=== PATIENT | female | born 1990 | race Caucasian/White ===

== ENCOUNTER 2019-04-19 17:00 | Inpatient (IN) | payer OTHER ==
--- NOTE | 2019-04-19 17:33 | HP ---
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: Alzheimer's, CVA, Dementia, Migraine, Multiple Sclerosis, Peripheral Neuropathy, Parkinson's, Seizure, Syncope, TIA, Vertigo, Other (migraines) Cardiovascular: No: AFIB, Aneurysm, Aortic Insufficiency, Aortic Stenosis, CAD, CHF, Deep Vein Thrombosis, HTN, Hyperlipdemia, ID, Mitral Insufficiency, Mitral Stenosis, Murmur, Pulmonary Hypertension, Other Pulmonary: No: Asthma, Bronchitis, Cancer, COPD, O2 Dependent, Pneumonia, Previously Intubated, Pulmonary Embolus, Pulmonary Fibrosis, Sleep Apnea, Other Gastrointestinal: No: Ascites, Cancer, Constipation, Crohn's Disease, Diverticulitis, Diverticulosis, Esophageal Varices, Gastritis, GERD, GI Bleed, Hemorrhoids, Hiatal Hernia, Inflamatory Bowel Disease, Irritable Bowel Disease, Pancreatitis, Peptic Ulcer Disease, Ulcerative Colitis, Other Hepatobiliary: No: Cirrhosis, Cholelithiasis, Cholecystitis, Choledocholithiasis , Hepatitis A, Hepatitis B, Hepatitis C, Other Renal/: No: Renal Failure, Renal Inusuff, BPH, Cancer, Hematuria, Hemodialysis , Neurogenic Bladder, Renal Calculi, UTI, Other Reproductive: No: Ectopic , Endometriosis, Fibroids, PID, Polycystic Ovary Syndrome, Postmenopausal, Other Heme/Onc: No: Anemia, B12 Deficiency, Bleeding Disorder, Cancer, Current Chemotherapy, Current Radiation Therapy, Hemochromatosis, Hypercoaguable State, Myeloproliferative Synd, Sickle Cell Disease, Sickle Cell Trait, Thrombocytopenia, Other Infectious Disease: No: AIDS, C-Diff, Herpes Zoster, HIV, MRSA, STD's, Tuberculosis, VREF, Other Psych: No: Addictions, Anxiety, Bipolar, Depression, Panic, Psychosis, Schizophrenia, Other Musculoskeletal: No: Bursitis, Chronic low back pain, Hemiparesis, Hemiplegia, Osteoarthritis, Paraplegia, Other Rheumatology: No: Fibromyalgia, Gout, Lupus, Rheumatoid Arthritis, Sarcoidosis, Vasculitis, Other ENT: No: Allergic Rhinitis, Sinusitis, Other Endocrine: No: Rockwall's Disease, Kris's Disease, Diabetes Insipidus, Diabetes Mellitus, Hyperparathyroidism, Hyperthyroidism, Hypothyroidism, Osteopenia, SIADH, Other Dermatology: No: Basal Cell, Cellulitis, Eczema, Melanoma, Psoriasis, Squamous Cell, Other - Past Surgical History Past Surgical History: No: None, AAA Repair, AICD, Amputation, Appendectomy, Arthrosocopy, AV Fistula/Graft, Bariatric Surgery, Breast Biopsy, Bypass, CABG, Carotid Endarterectomy, Cataract Removal, Cholecystectomy, Colectomy, Colonoscopy, Colostomy, Craniotomy, , Cystectomy, Hernia Repair, Hysterectomy, Ileal Conduit, Ileosotomy, Joint Replacement, Kidney Transplant, Laminectomy, Liver Transplant, Mastectomy, Nephrectomy, Oopherectomy, Orchiectomy, Permanent Pacemaker, Prostatectomy, Splenectomy, Stent, Thoracotomy , TURP, Tonsillectomy, Tubal Ligation, Upper Endoscopy, Valve Replacement, Vasectomy, Vein Stripping/Ligation Hx Myomectomy: No Hx Transabdominal Cerclage: No - Smoking History Have you smoked in the past 12 months: No Family Medical History Other Family History: Mother with diagnosed HTN Review of Systems Findings/Remarks: Feeling wet since 7 AM - Review of Systems Constitutional: reports: No Symptoms Eyes: reports: No Symptoms HENT: reports: No Symptoms Neck: reports: No Symptoms Cardiovascular: reports: No Symptoms Respiratory: reports: No Symptoms Gastrointestinal: reports: No Symptoms Genitourinary: reports: No Symptoms Breasts: reports: No Symptoms Reported Musculoskeletal: reports: No Symptoms Integumentary: reports: No Symptoms Neurological: reports: No Symptoms Endocrine: reports: No Symptoms Hematology/Lymphatic: reports: No Symptoms Psychiatric: reports: No Symptoms Physical Exam - Maternity Vital Signs: as reported by nursing Constitutional: Yes: No Distress Eyes: Yes: Conjunctiva Clear HENT: Yes: Atraumatic, Normocephalic Neck: Yes: Supple Cardiovascular: Yes: Regular Rate and Rhythm Breast(s): Yes: Other (deferred) - Abdominal Exam/OB Number of Fetuses: Single Presentation: Vertex (bedside sono, HERBERT 4.7cm, OA) Contractions: Yes Regularity: Irregular Intensity: Mild Monitor Mode: External Heart Rate (range): 135 Category: I Accelerations: Uniform Decelerations: None - Vaginal Exam/OB Vaginal Bleediing: No Speculum Exam: Yes (scant clear pooling) Dilatation (cm): 2 Effacement (%): 40 Amniotic Membrane Status: Ruptured Nitrazine Test: Positive Presentation: Vertex/Position Station: -3 - Physical Exam Musculoskeletal: Yes: WNL Extremities: Yes: WNL Edema: Yes Edema: LLE: Trace, RLE: Trace Integumentary: Yes: WNL ...Motor Strength: WNL Psychiatric: Yes: Alert, Oriented - Labs Lab Results: pending Imaging - Results Ultrasound: Report Reviewed Assessment/Plan 28 y/o @ 39.3wks, PROm since 7am, reassuring and maternal statuses. PROM discussed with patient and indication for augmentation of labor. IOL explained along with her risks. All questions answered and informed consnet obtained. -Admit -Start pitocin
[2019-04-19 17:40] VITALS: BMI 24.0
[2019-04-19] MEDS ORDERED: OXYTOCIN 30 UNITS in 0.9% NS 30 UNIT/500 ML INFUS.BAG IVPB SCH (17:45)
[2019-04-19] MEDS ORDERED: ELECTROLYTE-148 SOLN 1,000 ML IV SCH (17:45)
[2019-04-19] MEDS ORDERED: OXYTOCIN 30 UNITS in 0.9% NS 30 UNIT/500 ML INFUS.BAG IVPB ONE (17:56)
[2019-04-19] MEDS ORDERED: ACETAMINOPHEN 325 MG TABLET (FP) PO PRN (20:20)
[2019-04-19] MEDS ORDERED: ACETAMINOPHEN 325 MG TABLET (FP) ONE (20:22)
[2019-04-19 21:34] LABS: BASO % 0.3 % (0-2.0); HEMATOCRIT 36.8 % (32.4-45.2); HEMOGLOBIN 12.3 GM/dL (10.7-15.3); LYMPH % 22.4 % (8-40); MCH 29.4 pg (25.7-33.7); MCHC 33.3 g/dl (32.0-36.0); MEAN CELL VOLUME 88.2 fl (80-96); MEAN PLT VOLUME 8.8 fl (7.5-11.1); MONO % 5.4 % (3.8-10.2); NEUT % 70.9 % (42.8-82.8); PLATELET COUNT 192 K/MM3 (134-434); RBC 4.18 M/mm3 (3.60-5.2); RDW 14.1 % (11.6-15.6); WHITE BLOOD COUNT 8.8 K/mm3 (4.0-10.0)
[2019-04-19 21:51] LABS: INR 0.91 (0.83-1.09); PROTHROMBIN TIME (PATIENT) 10.7 SEC (9.7-13.0)
[2019-04-19 21:54] LABS: ACTIVATED PTT 27.3 SECONDS (25.2-36.5)
[2019-04-19 21:58] LABS: BLOOD UREA NITROGEN 9.3 mg/dL (7-18); CALCIUM 8.7 mg/dL (8.5-10.1); CREATININE 0.6 mg/dL (0.55-1.3); POTASSIUM 3.7 mmol/L (3.5-5.1)
[2019-04-19] MEDS ORDERED: LIDOCAINE HCL 1% PRESERVATIVE FREE - 30ML VIAL ONE (22:07)
[2019-04-19] MEDS ORDERED: OXYTOCIN 20 UNITS in 0.9% NS 20 UNIT/1,000 ML INFUS.BAG IV ONE (22:08)
--- NOTE | 2019-04-19 22:58 | PN ---
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 Shoulders delivered with maternal expulsive efforts, followed by the rest of the body. Umbilical cord clamped after delay and samples for gases and blood obtained. Placenta delivered spontaneously and intact. Exam revealed small hemostatic left labial minora laceration re-approximated with 3 interrupted 4.0 polysorb sutures. Fundus is firm and excellent hemostasis noted. Sponge/ instrument count correct x 2 and confirmed by nurse.
[2019-04-19] MEDS ORDERED: OXYTOCIN 20 UNITS in 0.9% NS 20 UNIT/1,000 ML INFUS.BAG IV SCH (23:00)
--- NOTE | 2019-04-19 23:13 | CONSULT ---
Consult - text type - Consultation Consultation Note: ICU and ER called, patient is still awaiting transfer to ICU and magnesium administration.
[2019-04-20] MEDS: ACETAMINOPHEN 325 MG TABLET (FP) PO PRN ×3 (00:35→23:15)
[2019-04-20] MEDS: IBUPROFEN 600 MG TABLET (FP) PO PRN ×3 (00:36→23:14)
[2019-04-20 08:32] LABS: HEMATOCRIT 35.3 % (32.4-45.2); HEMOGLOBIN 11.8 GM/dL (10.7-15.3); MEAN CELL VOLUME 88.2 fl (80-96); WHITE BLOOD COUNT 10.7 K/mm3 (4.0-10.0)
[2019-04-20 08:33] LABS: BASO % 0.3 % (0-2.0); EOS % 0.6 % (0-4.5); LYMPH % 17.3 % (8-40); MCH 29.6 pg (25.7-33.7); MCHC 33.5 g/dl (32.0-36.0); NEUT % 77.8 % (42.8-82.8); PLATELET COUNT 180 K/MM3 (134-434); RDW 13.7 % (11.6-15.6)
[2019-04-20] MEDS ORDERED: DIPHTH,PERTUSS(ACELL),TET 0.5 ML DISP.SYRIN IM ONE (10:00)
--- NOTE | 2019-04-21 08:38 | PN ---
Post Progress Note - Subjective Subjective: no complains Post Day: 2 Type of Delivery: Vital Signs: Vital Signs Temperature 99 F 04/20/19 21:00 Pulse Rate 79 04/20/19 21:00 Respiratory Rate 18 04/20/19 21:00 Blood Pressure 118/72 04/20/19 21:00 O2 Sat by Pulse Oximetry (%) 100 04/19/19 23:45 Breast Exam: Yes: Soft, Other (both Bf & bottle feeding ). No: Engorged Uterus: Yes: Fundus Firm, Fundus below umbilicus, Non-tender Lochia: Yes: Rubra Lochia, amount: Small Extremities: Yes: Calves non-tender Perineum: Yes: Intact Activity: Ambulating - Labs Labs: CBC WBC 10.7 K/mm3 (4.0-10.0) H 04/20/19 07:03 RBC 4.00 M/mm3 (3.60-5.2) 04/20/19 07:03 Hgb 11.8 GM/dL (10.7-15.3) 04/20/19 07:03 Hct 35.3 % (32.4-45.2) 04/20/19 07:03 MCV 88.2 fl (80-96) 04/20/19 07:03 MCH 29.6 pg (25.7-33.7) 04/20/19 07:03 MCHC 33.5 g/dl (32.0-36.0) 04/20/19 07:03 RDW 13.7 % (11.6-15.6) 04/20/19 07:03 Plt Count 180 K/MM3 (134-434) 04/20/19 07:03 MPV 9.0 fl (7.5-11.1) 04/20/19 07:03 Absolute Neuts (auto) 8.4 K/mm3 (1.5-8.0) H 04/20/19 07:03 Neutrophils % 77.8 % (42.8-82.8) 04/20/19 07:03 Lymphocytes % 17.3 % (8-40) D 04/20/19 07:03 Monocytes % 4.0 % (3.8-10.2) 04/20/19 07:03 Eosinophils % 0.6 % (0-4.5) 04/20/19 07:03 Basophils % 0.3 % (0-2.0) 04/20/19 07:03 Nucleated RBC % 0 % (0-0) 04/20/19 07:03 Problem List - Problems (1) Encounter for care and examination after delivery Code(s): Z39.2 - ENCOUNTER FOR ROUTINE FOLLOW-UP Assessment/Plan pp day 32 stable plan discharge today
[2019-04-21 09:47] VITALS: BP 117/78; PULSE 63; TEMP 98.3
--- NOTE | 2019-04-21 09:54 | PN ---
Post Progress Note - Subjective Subjective: Patient is doing well. precautions discussed and all questions answered. Post Day: 2 Type of Delivery: Vital Signs: Vital Signs Temperature 98.3 F 04/21/19 07:50 Pulse Rate 63 04/21/19 07:50 Respiratory Rate 18 04/21/19 07:50 Blood Pressure 117/78 04/21/19 07:50 O2 Sat by Pulse Oximetry (%) 100 04/19/19 23:45 Breast Exam: Yes: Other (deferred) Uterus: Yes: Fundus Firm Abdomen/GI: Yes: Abdomen soft Lochia, amount: Moderate Extremities: Yes: Calves non-tender Perineum: Yes: Laceration (intact and suryres in place) - Labs Labs: CBC WBC 10.7 K/mm3 (4.0-10.0) H 04/20/19 07:03 RBC 4.00 M/mm3 (3.60-5.2) 04/20/19 07:03 Hgb 11.8 GM/dL (10.7-15.3) 04/20/19 07:03 Hct 35.3 % (32.4-45.2) 04/20/19 07:03 MCV 88.2 fl (80-96) 04/20/19 07:03 MCH 29.6 pg (25.7-33.7) 04/20/19 07:03 MCHC 33.5 g/dl (32.0-36.0) 04/20/19 07:03 RDW 13.7 % (11.6-15.6) 04/20/19 07:03 Plt Count 180 K/MM3 (134-434) 04/20/19 07:03 MPV 9.0 fl (7.5-11.1) 04/20/19 07:03 Absolute Neuts (auto) 8.4 K/mm3 (1.5-8.0) H 04/20/19 07:03 Neutrophils % 77.8 % (42.8-82.8) 04/20/19 07:03 Lymphocytes % 17.3 % (8-40) D 04/20/19 07:03 Monocytes % 4.0 % (3.8-10.2) 04/20/19 07:03 Eosinophils % 0.6 % (0-4.5) 04/20/19 07:03 Basophils % 0.3 % (0-2.0) 04/20/19 07:03 Nucleated RBC % 0 % (0-0) 04/20/19 07:03 Assessment/Plan PP# 2 in stable condition with baby at bedside -D/C home -F/U for PP visit and PRN
== END 2019-04-21 13:15 | disposition home or self-care (01) | DRG 560 ==
LOC: JLDR 17:00 → J3W 04-20 00:16
PROVIDERS: ADMIT Student in an Organized Health Care Education/Training Program; ATTEND Student in an Organized Health Care Education/Training Program
PROC: 10E0XZZ Delivery of Products of Conception, External Approach (ICD-10-PCS; principal; 2019-04-19)
PROC: 0W8NXZZ Division of Female Perineum, External Approach (ICD-10-PCS; 2019-04-19)
PROC: 0UQMXZZ Repair Vulva, External Approach (ICD-10-PCS; 2019-04-19)
DX: O71.82 Other specified trauma to perineum and vulva (principal); O42.92 Full-term premature rupture of membranes, unspecified as to length of time between rupture and onset of labor; Z3A.39 39 weeks gestation of pregnancy; Z37.0 Single live birth
CPT/HCPCS: 36415; 36600; 59409; 80048; 82803; 85025; 85610; 85730; 86593; 86850; 86870; 86900; 86901; 86902; 90715

== ENCOUNTER 2021-01-08 16:47 | Emergency (ER) | payer OTHER ==
[2021-01-08 17:09] VITALS: BP 135/89; PULSE 94; TEMP 99.3; BMI 21.1
[2021-01-08 18:20] LABS: BASO % 0.6 % (0-2.0); EOS % 2.1 % (0-4.5); HEMATOCRIT 39.3 % (32.4-45.2); HEMOGLOBIN 13.1 GM/dL (10.7-15.3); LYMPH % 30.9 % (8-40); MCH 28.8 pg (25.7-33.7); MCHC 33.4 g/dl (32.0-36.0); MEAN CELL VOLUME 86.2 fl (80-96); MEAN PLT VOLUME 7.9 fl (7.5-11.1); MONO % 4.2 % (3.8-10.2); NEUT % 62.2 % (42.8-82.8); PLATELET COUNT 293 10^3/uL (134-434); RBC 4.56 M/mm3 (3.60-5.2); RDW 12.8 % (11.6-15.6); WHITE BLOOD COUNT 8.7 K/mm3 (4.0-10.0)
[2021-01-08 18:27] LABS: INR 1.01 (0.83-1.09); PROTHROMBIN TIME (PATIENT) 12.2 SEC (9.7-13.0)
[2021-01-08 18:28] LABS: EPI CELLS 16 /uL (0-25.1); HYALINE CASTS 0 /uL (0-3.1); URINE APPEARANCE CLEAR; URINE BACTERIA 126 /uL (0-1359); URINE BILIRUBIN NEGATIVE (NEGATIVE); URINE COLOR YELLOW; URINE GLUCOSE (UA) NEGATIVE (NEGATIVE); URINE KETONE NEGATIVE (NEGATIVE); URINE LEUK ESTERASE 1+ (NEGATIVE); URINE NITRITE NEGATIVE (NEGATIVE); URINE PROTEIN NEGATIVE (NEGATIVE); URINE RBC 322 /uL (0-23.9); URINE WBC 35 /uL (0-25.8)
[2021-01-08 18:29] LABS: ACTIVATED PTT 28.7 SECONDS (25.2-36.5); HCG,QUALITATIVE URINE Negative
[2021-01-08 18:40] LABS: ALBUMIN 4.3 g/dl (3.4-5.0); BLOOD UREA NITROGEN 12.6 mg/dL (7-18); CALCIUM 9.6 mg/dL (8.5-10.1)
[2021-01-08 18:45] LABS: BILIRUBIN,TOTAL 0.2 mg/dL (0.2-1); TOT PROT 7.5 g/dl (6.4-8.2)
== END 2021-01-08 19:15 | disposition home or self-care (01) ==
LOC: JER 16:47
DX: N93.8 Other specified abnormal uterine and vaginal bleeding (principal)
CPT/HCPCS: 36415; 80053; 81003; 84703; 85025; 85610; 85730; 99283-25

== ENCOUNTER 2022-04-12 09:17 | Emergency (ER) | payer OTHER ==
[2022-04-12 09:38] VITALS: BP 142/92; PULSE 94; RESP 17; TEMP 97.5; BMI 21.1
[2022-04-12] MEDS ORDERED: SODIUM CHLORIDE 0.9% 500 ML INFUS.BAG IV ONE (09:54)
[2022-04-12 10:30] LABS: BASO % 0.7 % (0-2.0); EOS % 2.5 % (0-4.5); HEMATOCRIT 41.5 % (32.4-45.2); HEMOGLOBIN 13.5 GM/dL (10.7-15.3); LYMPH % 30.5 % (8-40); MCH 28.4 pg (25.7-33.7); MCHC 32.4 g/dl (32.0-36.0); MEAN CELL VOLUME 87.7 fl (80-96); MONO % 4.1 % (3.8-10.2); NEUT % 62.2 % (42.8-82.8); PLATELET COUNT 278 10^3/uL (134-434); RBC 4.74 M/mm3 (3.60-5.2); RDW 12.9 % (11.6-15.6); WHITE BLOOD COUNT 6.1 K/mm3 (4.0-10.0)
[2022-04-12 10:51] LABS: CHLORIDE 109 mmol/L (98-107); SODIUM 142 mmol/L (136-145)
[2022-04-12 10:53] LABS: ALBUMIN 3.9 g/dl (3.4-5.0); ANION GAP 5 MMOL/L (8-16); CALCIUM 9.4 mg/dL (8.5-10.1); CO2 28 mmol/L (21-32); GLUCOSE,RANDOM 95 mg/dL (74-106)
[2022-04-12 10:54] LABS: BLOOD UREA NITROGEN 7.3 mg/dL (7-18); MAGNESIUM 2.2 mg/dL (1.8-2.4)
[2022-04-12 10:56] LABS: CREATININE 0.8 mg/dL (0.55-1.3); SGPT/ALT 18 U/L (13-61)
[2022-04-12 10:57] LABS: SGOT/AST 16 U/L (15-37)
[2022-04-12 10:58] LABS: BILIRUBIN,TOTAL 0.3 mg/dL (0.2-1)
[2022-04-12 10:59] LABS: ALK PHOS 55 U/L (45-117)
== END 2022-04-12 11:57 | disposition home or self-care (01) ==
LOC: JER 09:17
DX: R00.2 Palpitations (principal)
CPT/HCPCS: 36415; 71046-TC-FY; 80053; 83735; 84443; 84484; 85025; 93005; 93010; 99285-25

== ENCOUNTER 2023-09-29 09:11 | Emergency (ER) | payer OTHER ==
[2023-09-29 09:44] VITALS: BP 113/84; PULSE 87; RESP 18; TEMP 100.5; BMI 20.5
[2023-09-29] MEDS ORDERED: METOCLOPRAMIDE HCL INJECTION 10 MG/2 ML VIAL ONE (10:13)
[2023-09-29] MEDS ORDERED: ACETAMINOPHEN INJECTION 100 ML IVPB ONE (10:31)
[2023-09-29] MEDS: SODIUM CHLORIDE 0.9% 500 ML INFUS.BAG IV ONE (10:36)
[2023-09-29] MEDS: METOCLOPRAMIDE HCL INJECTION 10 MG/2 ML VIAL IVPUSH ONE (10:36)
[2023-09-29] MEDS: ACETAMINOPHEN 1000 MG/100 ML BAG IVPB ONE (10:36)
[2023-09-29 10:44] LABS: BASO % 0.6 % (0-2.0); EOS % 0.3 % (0-4.5); HEMATOCRIT 37.8 % (32.4-45.2); HEMOGLOBIN 12.8 GM/dL (10.7-15.3); LYMPH % 23.9 % (8-40); MCH 29.8 pg (25.7-33.7); MCHC 33.8 g/dl (32.0-36.0); MEAN PLT VOLUME 8.9 fl (7.5-11.1); MONO % 9.5 % (3.8-10.2); NEUT % 65.7 % (42.8-82.8); PLATELET COUNT 233 10^3/uL (134-434); RDW 13.5 % (11.6-15.6)
[2023-09-29 11:09] LABS: POTASSIUM 4.9 mmol/L (3.5-5.1)
[2023-09-29 11:11] LABS: ALBUMIN 3.5 g/dl (3.4-5.0); CALCIUM 9.1 mg/dL (8.5-10.1)
[2023-09-29 11:12] LABS: BLOOD UREA NITROGEN 8.8 mg/dL (7-18)
[2023-09-29 11:15] LABS: CREATININE 0.6 mg/dL (0.55-1.3)
[2023-09-29 11:16] LABS: BILIRUBIN,TOTAL 0.4 mg/dL (0.2-1); TOT PROT 7.1 g/dl (6.4-8.2)
[2023-09-29 11:24] LABS: EPI CELLS 25 /uL (0-25.1); HYALINE CASTS 15 /uL (0-3.1); URINE APPEARANCE CLOUDY; URINE BACTERIA 3470 /uL (0-1359); URINE BILIRUBIN NEGATIVE (NEGATIVE); URINE COLOR DK YELLOW; URINE GLUCOSE (UA) NEGATIVE (NEGATIVE); URINE KETONE 3+ (NEGATIVE); URINE LEUK ESTERASE NEGATIVE (NEGATIVE); URINE NITRITE NEGATIVE (NEGATIVE); URINE PROTEIN 1+ (NEGATIVE)
[2023-09-29 12:24] LABS: URINE RBC 94.2 /uL (0-23.9); URINE WBC 204.6 /uL (0-25.8)
== END 2023-09-29 13:58 | disposition home or self-care (01) ==
LOC: JER 09:11
PROC: 3E033NZ Introduction of Analgesics, Hypnotics, Sedatives into Peripheral Vein, Percutaneous Approach (ICD-10-PCS; principal; 2023-09-29)
DX: R05.9 Cough, unspecified (principal); R09.81 Nasal congestion; R11.0 Nausea; R51.9 Headache, unspecified; J10.1 Influenza due to other identified influenza virus with other respiratory manifestations; Z20.822 Contact with and (suspected) exposure to COVID-19
CPT/HCPCS: 0241U-QW; 36415; 80053; 81003; 83735; 85025; 87086; 99284-25; J0131

== ENCOUNTER 2024-04-04 15:55 | Inpatient (IN) | payer OTHER ==
[2024-04-04] MEDS: ELECTROLYTE-148 SOLN 1,000 ML IV SCH (16:30)
[2024-04-04 17:10] LABS: BASO % 0.6 % (0-2.0); EOS % 1.1 % (0-4.5); HEMATOCRIT 34.8 % (32.4-45.2); HEMOGLOBIN 11.4 GM/dL (10.7-15.3); LYMPH % 20.9 % (8-40); MCHC 32.9 g/dl (32.0-36.0); MEAN CELL VOLUME 85.2 fl (80-96); MEAN PLT VOLUME 7.7 fl (7.5-11.1); MONO % 5.8 % (3.8-10.2); NEUT % 71.6 % (42.8-82.8); PLATELET COUNT 249 10^3/uL (134-434); RBC 4.08 M/mm3 (3.60-5.2); RDW 14.3 % (11.6-15.6); WHITE BLOOD COUNT 7.7 K/mm3 (4.0-10.0)
[2024-04-04 17:17] LABS: INR 0.94 (0.83-1.09); PROTHROMBIN TIME (PATIENT) 10.8 SEC (9.7-13.0)
[2024-04-04 17:20] LABS: ACTIVATED PTT 26.8 SECONDS (25.2-36.5)
[2024-04-04 17:25] VITALS: BMI 24.0
[2024-04-04 17:38] LABS: POTASSIUM 3.8 mmol/L (3.5-5.1)
[2024-04-04 17:40] LABS: BLOOD UREA NITROGEN 8.2 mg/dL (7-18); CALCIUM 8.9 mg/dL (8.5-10.1)
[2024-04-04 17:44] LABS: CREATININE 0.4 mg/dL (0.55-1.3)
[2024-04-04] MEDS ORDERED: BUTORPHANOL TARTRATE 2 MG/ML VIAL IVPB PRN (18:21)
[2024-04-04] MEDS ORDERED: PROMETHAZINE HCL 25 MG/1 ML VIAL IVPB PRN (18:21)
[2024-04-04] MEDS ORDERED: LACTATED RINGERS SOLUTION 1,000 ML/1,000 ML INFUS.BAG IV SCH (18:30)
[2024-04-04] MEDS ORDERED: OXYTOCIN 30 UNITS in 0.9% NS 30 UNIT/500 ML INFUS.BAG IVPB ONE (20:45)
[2024-04-04] MEDS: OXYTOCIN 30 UNITS in 0.9% NS 30 UNIT/500 ML INFUS.BAG IVPB SCH (20:45)
[2024-04-04] MEDS ORDERED: OXYTOCIN 20 UNITS in 0.9% NS 20 UNIT/1,000 ML INFUS.BAG IV ONE (23:13)
[2024-04-04] MEDS ORDERED: LIDOCAINE HCL 1% PRESERVATIVE FREE - 30ML VIAL ONE (23:13)
[2024-04-04] MEDS: OXYTOCIN 20 UNITS in 0.9% NS 20 UNIT/1,000 ML INFUS.BAG IV SCH (23:40)
[2024-04-04] MEDS ORDERED: BISACODYL 10 MG SUPP.RECT RC PRN (23:46)
[2024-04-04] MEDS ORDERED: oxyCODONE HCL 5 MG TABLET PO PRN (23:46)
[2024-04-04] MEDS ORDERED: METHYLERGONOVINE MALEATE 0.2 MG/1 ML AMP IM PRN (23:46)
[2024-04-04] MEDS: ACETAMINOPHEN 325 MG TABLET (FP) PO PRN (23:52)
[2024-04-05 01:09] LABS: CORD BASE EXCESS 0.1 mmol/L (0-2); CORD HCO3 23.8 mmHg (20-29); CORD PCO2 36.3 mmHg (30-78); CORD pH 7.435 (7.14-7.44)
[2024-04-05] MEDS: IBUPROFEN 600 MG TABLET (FP) PO PRN (02:08)
[2024-04-05] MEDS: BENZOCAINE 20% 57 GM BOTTLE TP PRN (02:08)
[2024-04-05] MEDS: WITCH HAZEL 50% (TUCKS) 40 PAD/JAR PAD TP PRN (02:17)
[2024-04-05] MEDS: BENZOCAINE 28 GM HEMORRHOIDAL OINTMENT TP PRN (02:17)
[2024-04-05 07:07] LABS: BASO % 0.2 % (0-2.0); EOS % 0.3 % (0-4.5); HEMATOCRIT 34.4 % (32.4-45.2); HEMOGLOBIN 11.2 GM/dL (10.7-15.3); LYMPH % 13.9 % (8-40); MCH 28.2 pg (25.7-33.7); MCHC 32.4 g/dl (32.0-36.0); MEAN CELL VOLUME 87.2 fl (80-96); MEAN PLT VOLUME 8.2 fl (7.5-11.1); NEUT % 80.6 % (42.8-82.8); PLATELET COUNT 218 10^3/uL (134-434); RBC 3.95 M/mm3 (3.60-5.2); RDW 14.3 % (11.6-15.6); WHITE BLOOD COUNT 12.7 K/mm3 (4.0-10.0)
[2024-04-05] MEDS: PRENATAL VITAMINS W/ FOLIC ACID TABLET (FP) PO SCH (10:39)
[2024-04-05 18:29] VITALS: TEMP 98.5
[2024-04-05] MEDS ORDERED: SENNOSIDES/DOCUSATE COMBO (SENNA PLUS) TABLET (UD) PO PRN (22:00)
[2024-04-06 09:13] VITALS: BP 123/79; PULSE 65; RESP 16
[2024-04-07 10:19] LABS: POC NITRAZINE POS
== END 2024-04-06 14:15 | disposition home or self-care (01) | DRG 560 ==
LOC: JDEL 15:55 → JLDR 16:15 → J3W 04-05 01:41
PROVIDERS: ADMIT Obstetrics & Gynecology; ATTEND Obstetrics & Gynecology
PROC: 10E0XZZ Delivery of Products of Conception, External Approach (ICD-10-PCS; principal; 2024-04-04)
DX: O80 Encounter for full-term uncomplicated delivery (principal); Z3A.38 38 weeks gestation of pregnancy; Z37.0 Single live birth
CPT/HCPCS: 36415; 36600; 59025; 59409; 80048; 82803; 83986-QW; 85025; 85610; 85730; 86780; 86850; 86900; 86901